=== PATIENT | male | born 2000 | race Caucasian/White ===

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

== ENCOUNTER → 2022-03-02 | Outpatient (CLI) | payer OTHER | LOC: M PLAIMG 14:39 | PROVIDERS: ATTEND Surgery | DX: S36.50 Unspecified injury of colon (principal) ==

== ENCOUNTER 2022-07-07 14:18 | Inpatient (IN) | payer OTHER ==
[~2022-07-07] VITALS: Ht 167.6 cm; Wt 72.0 kg
[2022-07-07] MEDS ORDERED: PERCOCET 5MG/325MG TAB PO PRN ×2 (15:55→18:20)
[2022-07-07] MEDS ORDERED: ONDANSETRON 4MG 2ML VIAL IV PRN (15:55)
[2022-07-07 16:15] VITALS: BP 116/56
[2022-07-07] MEDS ORDERED: HOME MED LIST COMPLETE! XX SCH (19:50)
[2022-07-07] MEDS: CIPROFLOXACIN 400 MG in IV 1 EA IV SCH (21:18)
[2022-07-07] MEDS: KETOROLAC 30 MG/ML 1ML VIAL IV SCH (21:18)
[2022-07-07 22:00] VITALS: BP 119/44
[2022-07-07] MEDS: metroNIDAZOLE 500 MG in IV 1 EA IV SCH (22:34)
[2022-07-08] MEDS: metroNIDAZOLE 500 MG in IV 1 EA IV SCH ×3 (05:02→21:20)
[2022-07-08] MEDS: KETOROLAC 30 MG/ML 1ML VIAL IV SCH ×3 (05:03→20:08)
[2022-07-08 05:54] VITALS: BP 97/50
[2022-07-08] MEDS: CIPROFLOXACIN 400 MG in IV 1 EA IV SCH ×2 (08:54→20:08)
[2022-07-08 09:32] LABS: BASO % 0.4 % (0.0-1.0); EOS # 0.3 10^3/uL (0.0-0.5); HEMATOCRIT 38.1 % (42.0-52.0); HEMOGLOBIN 12.8 g/dl (13.5-17.5); LYMPH % 23.8 % (24.0-44.0); MEAN CORPUSCULAR HEMOGLOBIN 30.6 pg (27.0-33.0); MEAN CORPUSCULAR HGB CONC 33.6 g/dl (32.0-36.5); MEAN CORPUSCULAR VOLUME 91.1 fl (80.0-96.0); MONO # 0.7 10^3/uL (0.0-0.8); MONO % 8.5 % (2.0-8.0); NEUTROPHILS # 5.4 10^3/uL (1.5-8.5); NEUTROPHILS % 62.8 % (36.0-66.0); PLATELET COUNT, AUTOMATED 217 10^3/uL (150-450); RED BLOOD COUNT 4.18 10^6/uL (4.30-6.10); WHITE BLOOD COUNT 8.5 10^3/uL (4.0-10.0)
[2022-07-08 09:55] LABS: BLOOD UREA NITROGEN 12 MG/DL (9-23); CALCIUM LEVEL 8.4 MG/DL (8.5-10.1); CARBON DIOXIDE LEVEL 26 MMOL/L (20-31); CHLORIDE LEVEL 108 MMOL/L (98-107); CREATININE FOR GFR 1.06 MG/DL (0.70-1.30); GLUCOSE, FASTING 73 MG/DL (60-100); POTASSIUM SERUM 4.5 MMOL/L (3.5-5.1); SODIUM LEVEL 140 MMOL/L (136-145)
[2022-07-08 14:00] VITALS: BP 96/43
[2022-07-08 15:14] VITALS: BP 110/56
[2022-07-08 20:00] VITALS: BP 112/52
[2022-07-09] MEDS: metroNIDAZOLE 500 MG in IV 1 EA IV SCH ×3 (04:59→21:52)
[2022-07-09] MEDS: KETOROLAC 30 MG/ML 1ML VIAL IV SCH ×3 (04:59→20:37)
[2022-07-09 05:19] LABS: BASO % 0.3 % (0.0-1.0); EOS # 0.8 10^3/uL (0.0-0.5); EOS % 9.7 % (0.0-3.0); HEMATOCRIT 36.8 % (42.0-52.0); HEMOGLOBIN 12.3 g/dl (13.5-17.5); LYMPH # 1.9 10^3/uL (1.5-5.0); MEAN CORPUSCULAR HEMOGLOBIN 30.5 pg (27.0-33.0); MEAN CORPUSCULAR HGB CONC 33.4 g/dl (32.0-36.5); MEAN CORPUSCULAR VOLUME 91.3 fl (80.0-96.0); MONO # 0.7 10^3/uL (0.0-0.8); MONO % 8.8 % (2.0-8.0); NEUTROPHILS # 4.3 10^3/uL (1.5-8.5); NEUTROPHILS % 55.8 % (36.0-66.0); PLATELET COUNT, AUTOMATED 224 10^3/uL (150-450); RED BLOOD COUNT 4.03 10^6/uL (4.30-6.10); WHITE BLOOD COUNT 7.8 10^3/uL (4.0-10.0)
[2022-07-09 05:35] VITALS: BP 96/54
[2022-07-09 05:51] LABS: BLOOD UREA NITROGEN 11 MG/DL (9-23); CALCIUM LEVEL 8.4 MG/DL (8.5-10.1); CARBON DIOXIDE LEVEL 26 MMOL/L (20-31); CHLORIDE LEVEL 108 MMOL/L (98-107); CREATININE FOR GFR 0.97 MG/DL (0.70-1.30); GLUCOSE, FASTING 86 MG/DL (60-100); POTASSIUM SERUM 4.4 MMOL/L (3.5-5.1); SODIUM LEVEL 141 MMOL/L (136-145)
[2022-07-09] MEDS: GASTROGRAFIN SOLUTION 30ML PO SCH ×2 (06:00→06:32)
[2022-07-09] MEDS ORDERED: ISOVUE-370 76% 100ML VIAL As Ordered ONE (07:38)
[2022-07-09] MEDS: CIPROFLOXACIN 400 MG in IV 1 EA IV SCH ×2 (09:02→20:37)
[2022-07-09 14:00] VITALS: BP 118/59
[2022-07-09 20:53] VITALS: BP 119/58
[2022-07-10] MEDS: metroNIDAZOLE 500 MG in IV 1 EA IV SCH (05:04)
[2022-07-10] MEDS: KETOROLAC 30 MG/ML 1ML VIAL IV SCH ×2 (05:04→12:05)
[2022-07-10 06:00] VITALS: BP 108/49
[2022-07-10] MEDS: CIPROFLOXACIN 400 MG in IV 1 EA IV SCH (08:16)
[2022-07-10] MEDS ORDERED: CIPR-249 PO (11:06)
[2022-07-10] MEDS ORDERED: METR-265 PO (11:07)
[2022-07-10] MEDS ORDERED: PERCOCET PO (11:15)
== END 2022-07-10 13:13 | disposition home or self-care (01) | DRG 392 ==
LOC: M ED INP 16:03 → OBSVTOIN 16:03 → M MSPAV 16:03 → UNDOADMOB 16:03
PROVIDERS: ADMIT Surgery; ATTEND Surgery
DX: A09 Infectious gastroenteritis and colitis, unspecified (principal)